=== PATIENT | male | born 1995 | race African-American/Black ===

== ENCOUNTER 2019-07-13 17:37 | Emergency (ER) | payer SELFPAY ==
[2019-07-13] MEDS ORDERED: methylPREDNISolone Sodium Succinate 125 MG/2 ML SDV IM ONE (17:43)
[2019-07-13] MEDS ORDERED: Albuterol/Ipratropium 3.0-0.5 MG/3 ML Neb Soln NEB ONE (17:44)
--- NOTE | 2019-07-13 17:44 | EDM.PDOC ---
ED HPI GENERAL MEDICAL PROBLEM - General Chief Complaint: Asthma Stated Complaint: ASTHMA Time Seen by Provider: 07/13/19 17:44 Source of Information: Reports: Patient - History of Present Illness INITIAL COMMENTS - FREE TEXT/NARRATIVE: HISTORY AND PHYSICAL: History of present illness: [Patient has run out of his albuterol inhaler, he presents with shortness of breath and wheeze no fever nausea vomiting chills sweats Review of systems: As per history of present illness and below otherwise all systems reviewed and negative. Past medical history: As per history of present illness and as reviewed below otherwise noncontributory. Surgical history: As per history of present illness and as reviewed below otherwise noncontributory. Social history: No reported history of drug or alcohol abuse. Family history: As per history of present illness and as reviewed below otherwise noncontributory. Physical exam: HEENT: Atraumatic, normocephalic, pupils reactive, negative for conjunctival pallor or scleral icterus, mucous membranes moist, throat clear, neck supple, nontender, trachea midline. Lungs: Clear to auscultation, breath sounds equal bilaterally, chest nontender. Heart: S1S2, regular, negative for clicks, rubs, or JVD. Abdomen: Soft, nondistended, nontender. Negative for masses or hepatosplenomegaly. Negative for costovertebral tenderness. Pelvis: Stable nontender. Genitourinary: Deferred. Rectal: Deferred. Extremities: Atraumatic, negative for cords or calf pain. Neurovascular unremarkable. Neuro: Awake, alert, oriented. Cranial nerves II through XII unremarkable. Cerebellum unremarkable. Motor and sensory unremarkable throughout. Exam nonfocal. Diagnostics: [Chest 1 view-pt refused x-ray ] Therapeutics: [DuoNeb Solu-Medrol Pro-air HFA #1 no refill [id number] mg #5 no refill ] Impression: [Asthma exacerbation]-resolved Definitive disposition and diagnosis as appropriate pending reevaluation and review of above. - Related Data Allergies Allergy/AdvReac Type Severity Reaction Status Date / Time No Known Allergies Allergy Verified 07/13/19 17:50 Home Meds: Home Meds . [No Known Home Meds] 07/13/19 [History] ED ROS GENERAL - Review of Systems Review Of Systems: See Below ED EXAM, GENERAL - Physical Exam Exam: See Below Course - Vital Signs Last Recorded V/S: Last Vital Signs Temp Pulse 83 07/13/19 17:37 Resp 22 H 07/13/19 17:37 BP Pulse Ox 98 07/13/19 17:37 - Orders/Labs/Meds Orders: Active Orders 24 hr Category Date Time Status RT Aerosol Therapy [RC] ASDIRECTED Care 07/13/19 17:44 Active Chest 1V Frontal [CR] Stat Exams 07/13/19 17:43 Ordered Meds: Medications Discontinued Medications Generic Name Dose Route Start Last Admin Trade Name Peyton PRN Reason Stop Dose Admin Albuterol/Ipratropium 3 ml 07/13/19 17:44 07/13/19 17:55 Duoneb 3.0-0.5 Mg/3 Ml NEB 07/13/19 17:45 3 ml ONETIME ONE Administration Methylprednisolone Sodium Succinate 125 mg 07/13/19 17:43 07/13/19 17:54 Solu-Medrol IM 07/13/19 17:44 125 mg ONETIME ONE Administration Departure - Departure Time of Disposition: 17:57 Disposition: Home, Self-Care 01 Condition: Good Clinical Impression: Asthma exacerbation - Discharge Information Forms: ED Department Discharge Additional Instructions: The following information is given to patients seen in the emergency department who are being discharged to home. This information is to outline your options for follow-up care. We provide all patients seen in our emergency department with a follow-up referral. The need for follow-up, as well as the timing and circumstances, are variable depending upon the specifics of your emergency department visit. If you don't have a primary care physician on staff, we will provide you with a referral. We always advise you to contact your personal physician following an emergency department visit to inform them of the circumstance of the visit and for follow-up with them and/or the need for any referrals to a consulting specialist. The emergency department will also refer you to a specialist when appropriate. This referral assures that you have the opportunity for follow-up care with a specialist. All of these measure are taken in an effort to provide you with optimal care, which includes your follow-up. Under all circumstances we always encourage you to contact your private physician who remains a resource for coordinating your care. When calling for follow-up care, please make the office aware that this follow-up is from your recent emergency room visit. If for any reason you are refused follow-up, please contact the [facility] emergency department at and asked to speak to the emergency department charge nurse. - My Orders Last 24 Hours: My Active Orders 07/13/19 17:43 Chest 1V Frontal [CR] Stat 07/13/19 17:44 RT Aerosol Therapy [RC] ASDIRECTED - Assessment/Plan Last 24 Hours: My Active Orders 07/13/19 17:43 Chest 1V Frontal [CR] Stat 07/13/19 17:44 RT Aerosol Therapy [RC] ASDIRECTED
== END 2019-07-13 18:00 | disposition home or self-care (01) ==
LOC: MW.ED 17:37
DX: J45.901 Unspecified asthma with (acute) exacerbation (principal)
CPT/HCPCS: 96372; 99284; J2930; J7620-GY

== ENCOUNTER 2019-07-28 18:54 | Emergency (ER) | payer SELFPAY ==
[2019-07-28] MEDS ORDERED: Albuterol/Ipratropium 3.0-0.5 MG/3 ML Neb Soln NEB ONE (19:00)
--- NOTE | 2019-07-28 19:01 | EDM.PDOC ---
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 Patient states he has been needing his rescue inhaler daily since moving to [place] 3 months ago. He states for the past 2 days he has been having cough and shortness of breath. Denies fevers, chills, nausea, vomiting, abdominal pain. Patient was given duoneb x 2 and 125mg solumedrol in intermediate 15 min prior to coming to ED. Patient is hyperventilating but 95-98% on RA Review of systems: As per history of present illness and below otherwise all systems reviewed and negative. Past medical history: As per history of present illness and as reviewed below otherwise noncontributory. Surgical history: As per history of present illness and as reviewed below otherwise noncontributory. Social history: No reported history of drug or alcohol abuse. Family history: As per history of present illness and as reviewed below otherwise noncontributory. Physical exam: General: Patient sitting comfortably in no acute distress and nontoxic appearing HEENT: Atraumatic, normocephalic, pupils reactive, negative for conjunctival pallor or scleral icterus, mucous membranes moist, throat clear, neck supple, nontender, trachea midline. No meningeal signs. Lungs: Wheezing throughout but good air flow noted, chest nontender. Heart: S1S2, regular, negative for clicks, rubs, or overt murmur. Abdomen: Soft, nondistended, nontender. Negative for masses or hepatosplenomegaly. Negative for costovertebral tenderness. No rigidity, rebound , guarding. Pelvis: Stable nontender. Genitourinary: Deferred. Rectal: Deferred. Extremities: Atraumatic, negative for cords or calf pain. Neurovascular unremarkable. Neuro: Awake, alert, oriented. Cranial nerves II through XII unremarkable. Cerebellum unremarkable. Motor and sensory unremarkable throughout. Exam nonfocal. Notes: Diagnostics: Chest x-ray Therapeutics: DuoNeb Prescriptions: Ventolin inhaler Medrol dosepak Impression: Asthma exacerbation Plan: [] Definitive disposition and diagnosis as appropriate pending reevaluation and review of above. 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 Treatments, IV/IO, Oxygen chest Pain Score (Numeric/FACES): 8 - Related Data Allergies Allergy/AdvReac Type Severity Reaction Status Date / Time Unrecalled Antibiotic Allergy Other Uncoded 07/28/19 18:59 Home Meds: Home Meds Albuterol [Ventolin HFA] 1 puff INH ASDIRECTED PRN 07/28/19 [History] Albuterol [Ventolin HFA] 1 puff INH Q4H #1 inhaler 07/28/19 [Rx] Azithromycin [Zithromax] 250 mg PO ASDIRECTED #1 dosepk 07/28/19 [Rx] methylPREDNISolone [Medrol] 4 mg PO ASDIRECTED #1 tab.ds.pk 07/28/19 [Rx] Past Medical History - Past Health History Medical/Surgical History: Denies Medical/Surgical History Respiratory History: Reports: Asthma - Past Surgical History GI Surgical History: Reports: Hernia, Inguinal Social & Family History - Family History Family Medical History: Noncontributory ED ROS GENERAL - Review of Systems Review Of Systems: ROS reveals no pertinent complaints other than HPI. ED EXAM, GENERAL - Physical Exam Exam: See Below (see dictation) Course - Vital Signs Last Recorded V/S: Last Vital Signs Temp 98.3 F 07/28/19 20:45 Pulse 78 07/28/19 20:45 Resp 16 07/28/19 20:45 BP 115/67 07/28/19 20:45 Pulse Ox 99 07/28/19 20:45 - Orders/Labs/Meds Meds: Medications Discontinued Medications Generic Name Dose Route Start Last Admin Trade Name Freq PRN Reason Stop Dose Admin Albuterol/Ipratropium 3 ml 07/28/19 19:00 07/28/19 19:08 Duoneb 3.0-0.5 Mg/3 Ml NEB 07/28/19 19:01 3 ml ONETIME ONE Administration Departure - Departure Time of Disposition: 08:59 Disposition: Home, Self-Care 01 Clinical Impression: Asthma exacerbation - Discharge Information Prescriptions: Albuterol [Ventolin HFA] 1 puff INH Q4H #1 inhaler Azithromycin [Zithromax] 250 mg PO ASDIRECTED #1 dosepk methylPREDNISolone [Medrol] 4 mg PO ASDIRECTED #1 tab.ds.pk Instructions: Shortness of Breath, Adult, [id number] Referrals: PCP,None [Primary Care Provider] - Forms: ED Department Discharge
--- NOTE | 2019-07-28 19:42 | CR ---
INDICATION: pain, SOB TECHNIQUE: Chest 1 view. COMPARISON: None. FINDINGS: Cardiovascular and mediastinum: Heart size and vasculature are normal in caliber and appearance. Mediastinum is within normal limits. Lungs and pleural space: Lungs are clear. No sign of infiltrate or mass. No sign of pleural effusion. No pneumothorax. Bones and soft tissues: No significant findings. IMPRESSION: Unremarkable chest. Dictated by: Magan Doty MD @ 07/28/2019 19:39:59 (Electronically Signed)
== END 2019-07-28 20:46 | disposition home or self-care (01) ==
LOC: MW.ED 18:54
DX: J45.901 Unspecified asthma with (acute) exacerbation (principal); Z88.1 Allergy status to other antibiotic agents; Z79.899 Other long term (current) drug therapy
CPT/HCPCS: 71045; 71045-26; 99282; 99284-25; J7620-GY

== ENCOUNTER 2019-09-15 11:11 | Emergency (ER) | payer OTHER ==
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
== END 2019-09-15 11:48 | disposition home or self-care (01) ==
LOC: MW.ED 11:11
DX: Z13.9 Encounter for screening, unspecified (principal); J45.909 Unspecified asthma, uncomplicated; Z79.899 Other long term (current) drug therapy
CPT/HCPCS: 82962; 99282; 99284

== ENCOUNTER 2019-09-27 23:45 | Emergency (ER) | payer OTHER ==
[2019-09-27] MEDS ORDERED: Albuterol/Ipratropium 3.0-0.5 MG/3 ML Neb Soln ONE (23:47)
[2019-09-27] MEDS ORDERED: Sodium Chloride 0.9% 2.5 ML Syringe FLUSH PRN (23:56)
[2019-09-27] MEDS ORDERED: Sodium Chloride 0.9% 1,000 ML IV ONE (23:56)
[2019-09-27] MEDS ORDERED: LORazepam 2 MG/ML SDV IVPUSH ONE (23:56)
[2019-09-27] MEDS ORDERED: methylPREDNISolone Sodium Succinate 125 MG/2 ML SDV IVPUSH ONE (23:56)
[2019-09-27] MEDS ORDERED: Sodium Chloride 0.9% 10 ML Syringe FLUSH PRN (23:56)
--- NOTE | 2019-09-27 23:59 | EDM.PDOC ---
ED HPI GENERAL MEDICAL PROBLEM - General Chief Complaint: Respiratory Problem Stated Complaint: ASTHMA ATTACK Time Seen by Provider: 09/27/19 23:51 - History of Present Illness INITIAL COMMENTS - FREE TEXT/NARRATIVE: HISTORY AND PHYSICAL: History of present illness: The patient is a 23-year-old male with a known history of asthma who is presented to the ED once a month for the last or months including today and arrives via EMS with complaints of an asthma attack. He says it's been going on for the last 3 or 4 days and it was worse this evening. He says he has just been feeling very sick but has not had a fever nausea vomiting or diarrhea and has had a dry hacking cough. He says he has nebulizer machine but it is unclear whether or not he is using it. The patient denies getting his flu shot this year and has been eating and drinking normally. He was brought via EMS and he was given a duo neb in route. His sats been good via EMS as well as here. He has been referred to primary care on each of his prior ED visits over the last 4 months and he says he does not have a provider yet has not connected. He says that he does smoke marijuana and no cigarettes and no other drugs but did not smoke marijuana this evening The patient told nursing that he was having some headache and earache but he did not offer that information to me as well as a sore throat. He told me that he's been feeling very congested and blowing his nose a lot. Review of systems: As per history of present illness and below otherwise all systems reviewed and negative. Past medical history: As per history of present illness and as reviewed below otherwise noncontributory. Surgical history: As per history of present illness and as reviewed below otherwise noncontributory. Social history: No reported history of drug or alcohol abuse. Family history: As per history of present illness and as reviewed below otherwise noncontributory. Physical exam: General: Well-developed well-nourished thin man who is nontoxic and appears very anxious on my evaluation. He has hyperventilating but is speaking without breathlessness. Vital signs are noted by me HEENT: Atraumatic, normocephalic, pupils reactive, negative for conjunctival pallor or scleral icterus, mucous membranes moist, throat clear, neck supple, nontender, trachea midline. TMs are dulled bilaterally and there is some cerumen in external canal. The patient does have a nasal quality to voice but doesn't have any specific sinus tenderness. Lungs: Clear to auscultation with an occasional coarse breath sound and expiratory wheeze but some diminished breath sounds in the left base and exaggerated work of breathing no stridor, breath sounds equal bilaterally, chest nontender. Heart: S1S2, regular rhythm and not tachycardic rate on my evaluation but no overt murmurs Abdomen: Soft, nondistended, nontender. Negative for masses or hepatosplenomegaly. Negative for costovertebral tenderness. Pelvis: Stable nontender. Genitourinary: Deferred. Rectal: Deferred. Extremities: Atraumatic, negative for cords or calf pain. Neurovascular unremarkable. Neuro: Awake, alert, oriented. Cranial nerves II through XII unremarkable. Cerebellum unremarkable. Motor and sensory unremarkable throughout. Exam nonfocal. Diagnostics: CBC CMP influenza swab a chest x-ray Therapeutics: IV O2 monitor IV fluids duo neb Solu-Medrol Ativan Tylenol The patient tells me he has a nebulizer machine as well as a medicine for it, a rescue inhaler and a spacer at home. I stressed the importance again of the need for getting an appointment in the clinic and having follow-up as this patient has been here once a month the last 4 months in a row for asthma issues. Impression: Acute asthma exacerbation, URI with cough, congestion Definitive disposition and diagnosis as appropriate pending reevaluation and review of above. Treatments PROCEDURES ANALYST: Reports: Other (see below) Other Treatments PROCEDURES ANALYST: Duoneb inh - Related Data Allergies Allergy/AdvReac Type Severity Reaction Status Date / Time Unrecalled Antibiotic Allergy Other Uncoded 09/27/19 23:56 Home Meds: Home Meds . [No Known Home Meds] 09/15/19 [History] Past Medical History - Past Health History Medical/Surgical History: Denies Medical/Surgical History Respiratory History: Reports: Asthma - Infectious Disease History Infectious Disease History: Reports: None - Past Surgical History GI Surgical History: Reports: Hernia, Inguinal Musculoskeletal Surgical History: Reports: Other (See Below) Other Musculoskeletal Surgeries/Procedures:: hand sx Social & Family History - Family History Family Medical History: Noncontributory ED ROS GENERAL - Review of Systems Review Of Systems: ROS reveals no pertinent complaints other than HPI. ED EXAM, GENERAL - Physical Exam Exam: See Below (See dictation) Course - Vital Signs Last Recorded V/S: Last Vital Signs Temp 36.1 C 09/27/19 23:50 Pulse 99 09/27/19 23:50 Resp 25 H 09/27/19 23:50 BP 139/88 09/27/19 23:50 Pulse Ox 100 09/27/19 23:50 - Orders/Labs/Meds Orders: Active Orders 24 hr Category Date Time Status Cardiac Monitoring [RC] . DIRECTED Care 09/27/19 23:54 Active Oxygen Therapy, ED [RC] ASDIRECTED Care 09/27/19 23:54 Active Pulse Oximetry [RC] ASDIRECTED Care 09/27/19 23:54 Active RT Aerosol Therapy [RC] ASDIRECTED Care 09/28/19 00:05 Active Sodium Chloride 0.9% [Normal Saline] 1,000 ml Med 09/27/19 23:56 Active IV STAT Sodium Chloride 0.9% [Saline Flush] Med 09/27/19 23:56 Active 10 ml FLUSH ASDIRECTED PRN Sodium Chloride 0.9% [Saline Flush] Med 09/27/19 23:56 Active 2.5 ml FLUSH ASDIRECTED PRN Saline Lock Insert [OM.PC] Stat Oth 09/27/19 23:54 Ordered Medication Orders Sodium Chloride (Normal Saline) 1,000 mls @ 999 mls/hr IV STAT ONE Stop: 09/28/19 00:56 Last Admin: 09/28/19 00:04 Dose: 999 mls/hr Sodium Chloride (Saline Flush) 10 ml FLUSH ASDIRECTED PRN PRN Reason: Keep Vein Open Sodium Chloride (Saline Flush) 2.5 ml FLUSH ASDIRECTED PRN PRN Reason: Keep Vein Open Labs: Laboratory Tests 09/27/19 09/27/19 Range/Units 23:50 23:50 WBC 9.10 (4.0-11.0) K/uL RBC 4.94 (4.50-5.90) M/uL Hgb 16.2 (13.0-17.0) g/dL Hct 46.0 (38.0-50.0) % MCV 93.1 (80.0-98.0) fL MCH 32.8 H (27.0-32.0) pg MCHC 35.2 (31.0-37.0) g/dL RDW Std Deviation 39.6 (28.0-62.0) fl RDW Coeff of Rivka 12 (11.0-15.0) % Plt Count 230 (150-400) K/uL MPV 9.50 (7.40-12.00) fL Neut % (Auto) 61.6 (48.0-80.0) % Lymph % (Auto) 28.4 (16.0-40.0) % [place] % (Auto) 8.9 (0.0-15.0) % Eos % (Auto) 0.9 (0.0-7.0) % Baso % (Auto) 0.2 (0.0-1.5) % Neut # (Auto) 5.6 (1.4-5.7) K/uL Lymph # (Auto) 2.6 H (0.6-2.4) K/uL [place] # (Auto) 0.8 (0.0-0.8) K/uL Eos # (Auto) 0.1 (0.0-0.7) K/uL Baso # (Auto) 0.0 (0.0-0.1) K/uL Nucleated RBC % 0.0 /100WBC Nucleated RBCs # 0 K/uL Sodium 137 (136-148) mmol/L Potassium 3.5 (3.5-5.1) mmol/L Chloride 101 (98-107) mmol/L Carbon Dioxide 18.4 L (21.0-32.0) mmol/L BUN 25 H (7.0-18.0) mg/dL Creatinine 1.4 H (0.8-1.3) mg/dL Est Cr Clr Drug Dosing 85.68 mL/min Estimated GFR (MDRD) > 60.0 ml/min Glucose 94 (74-106) mg/dL Calcium 9.4 (8.5-10.1) mg/dL Total Bilirubin 1.0 (0.2-1.0) mg/dL AST 54 H (15-37) IU/L ALT 37 (14-63) IU/L Alkaline Phosphatase 69 (46-116) U/L Total Protein 7.9 (6.4-8.2) g/dL Albumin 4.4 (3.4-5.0) g/dL Globulin 3.5 (2.6-4.0) g/dL Albumin/Globulin Ratio 1.3 (0.9-1.6) Meds: Medications Generic Name Dose Route Start Last Admin Trade Name Freq PRN Reason Stop Dose Admin Sodium Chloride 1,000 mls @ 999 mls/hr 09/27/19 23:56 09/28/19 00:04 Normal Saline IV 09/28/19 00:56 999 mls/hr STAT ONE Administration Sodium Chloride 10 ml 09/27/19 23:56 Saline Flush FLUSH ASDIRECTED PRN Keep Vein Open Sodium Chloride 2.5 ml 09/27/19 23:56 Saline Flush FLUSH ASDIRECTED PRN Keep Vein Open Discontinued Medications Generic Name Dose Route Start Last Admin Trade Name Freq PRN Reason Stop Dose Admin Acetaminophen 1,000 mg 09/28/19 00:07 09/28/19 00:09 Tylenol Extra Strength PO 09/28/19 00:08 1,000 mg ONETIME ONE Administration Albuterol/Ipratropium Confirm 09/27/19 23:47 09/27/19 23:50 Duoneb 3.0-0.5 Mg/3 Ml Administered 09/27/19 23:48 3 ml Dose Administration 3 ml .ROUTE .STK-MED ONE Albuterol/Ipratropium 3 ml 09/28/19 00:05 09/28/19 00:06 Duoneb 3.0-0.5 Mg/3 Ml NEB 09/28/19 00:06 Not Given ONETIME ONE Lorazepam 0.5 mg 09/27/19 23:56 09/28/19 00:04 Ativan IVPUSH 09/27/19 23:57 0.5 mg ONETIME ONE Administration Methylprednisolone Sodium Succinate 125 mg 09/27/19 23:56 09/28/19 00:04 Solu-Medrol IVPUSH 09/27/19 23:57 125 mg ONETIME ONE Administration Departure - Departure Time of Disposition: 00:35 Disposition: Home, Self-Care 01 Condition: Good Clinical Impression: Asthma exacerbation, URI with cough and congestion - Discharge Information Referrals: PCP,None [Primary Care Provider] - Forms: ED Department Discharge Additional Instructions: The following information is given to patients seen in the emergency department who are being discharged to home. This information is to outline your options for follow-up care. We provide all patients seen in our emergency department with a follow-up referral. The need for follow-up, as well as the timing and circumstances, are variable depending upon the specifics of your emergency department visit. If you don't have a primary care physician on staff, we will provide you with a referral. We always advise you to contact your personal physician following an emergency department visit to inform them of the circumstance of the visit and for follow-up with them and/or the need for any referrals to a consulting specialist. The emergency department will also refer you to a specialist when appropriate. This referral assures that you have the opportunity for followup care with a specialist. All of these measure are taken in an effort to provide you with optimal care, which includes your followup. Under all circumstances we always encourage you to contact your private physician who remains a resource for coordinating your care. When calling for followup care, please make the office aware that this follow-up is from your recent emergency room visit. If for any reason you are refused follow-up, please contact the [facility] emergency department at and ask to speak to the emergency department charge nurse. [facility] Primary care- Internal [place] [address] Push hydration and use [id number] Zyrtec or Claritin for your sinus fluid and congestion. You may also use [id number] Flonase to help reduce swelling of your nasal passages and to promote drainage. Use cool mist humidifier at sleep times. Use your nebulizer or your inhaler with spacer every 4-6 hours for spastic cough or shortness of breath/wheezing. Please take the prednisone as prescribed starting later this afternoon. These call and schedule a follow-up appointment in the clinic for reevaluation and further care and preventative therapy with your asthma. Return to ER as needed and as discussed - My Orders Last 24 Hours: My Active Orders 09/27/19 23:54 Cardiac Monitoring [RC] . DIRECTED Oxygen Therapy, ED [RC] ASDIRECTED Pulse Oximetry [RC] ASDIRECTED Saline Lock Insert [OM.PC] Stat 09/27/19 23:56 Sodium Chloride 0.9% [Normal Saline] 1,000 ml IV STAT Sodium Chloride 0.9% [Saline Flush] 10 ml FLUSH ASDIRECTED PRN Sodium Chloride 0.9% [Saline Flush] 2.5 ml FLUSH ASDIRECTED PRN 09/28/19 00:05 RT Aerosol Therapy [RC] ASDIRECTED - Assessment/Plan Last 24 Hours: My Active Orders 09/27/19 23:54 Cardiac Monitoring [RC] . DIRECTED Oxygen Therapy, ED [RC] ASDIRECTED Pulse Oximetry [RC] ASDIRECTED Saline Lock Insert [OM.PC] Stat 09/27/19 23:56 Sodium Chloride 0.9% [Normal Saline] 1,000 ml IV STAT Sodium Chloride 0.9% [Saline Flush] 10 ml FLUSH ASDIRECTED PRN Sodium Chloride 0.9% [Saline Flush] 2.5 ml FLUSH ASDIRECTED PRN 09/28/19 00:05 RT Aerosol Therapy [RC] ASDIRECTED
[2019-09-28] MEDS ORDERED: Albuterol/Ipratropium 3.0-0.5 MG/3 ML Neb Soln NEB ONE (00:05)
[2019-09-28] MEDS ORDERED: Acetaminophen 500 MG Tab PO ONE (00:07)
[2019-09-28 00:23] LABS: BLOOD UREA NITROGEN,BUN 25 mg/dL (7.0-18.0); CARBON DIOXIDE,CO2 18.4 mmol/L (21.0-32.0); CHLORIDE,CL 101 mmol/L (98-107); GLUCOSE RANDOM 94 mg/dL (74-106); POTASSIUM,K 3.5 mmol/L (3.5-5.1); SODIUM,NA 137 mmol/L (136-148)
--- NOTE | 2019-09-28 00:28 | CR ---
INDICATION: Chest pain, shortness of breath TECHNIQUE: Chest radiograph 1 view on 2 films COMPARISON: None FINDINGS: Mediastinum: The mediastinum is normal in appearance. The heart silhouette is normal in size and morphology. Lung: Both lungs are unremarkable in appearance. No sign of pleural effusion seen. No pneumothorax is identified. Bone and Soft tissue: Unremarkable for age. IMPRESSION: 1. No acute cardiopulmonary disease is seen. Dictated by: Oseas Chambers MD @ 09/28/2019 00:25:37 (Electronically Signed)
== END 2019-09-28 00:50 | disposition home or self-care (01) ==
LOC: MW.ED 23:45
DX: J45.901 Unspecified asthma with (acute) exacerbation (principal); J06.9 Acute upper respiratory infection, unspecified
CPT/HCPCS: 36415; 71045; 71045-26; 80053; 85025; 87804; 94640; 96361; 96374; 96375; 99284-25; A9270-GY; J2060; J2930; J7040; J7620-GY

== ENCOUNTER 2019-10-07 00:36 | Emergency (ER) | payer OTHER ==
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
[2019-10-07] MEDS ORDERED: Diphtheria,Pertussis(Acell),Tetanus Vaccine 0.5 ML Syringe IM ONE (00:47)
== END 2019-10-07 01:00 | disposition home or self-care (01) ==
LOC: MW.ED 00:36
DX: S00.81XA Abrasion of other part of head, initial encounter (principal); J45.909 Unspecified asthma, uncomplicated; Z23 Encounter for immunization; Z88.1 Allergy status to other antibiotic agents; Y04.0XXA Assault by unarmed brawl or fight, initial encounter
CPT/HCPCS: 90471; 90715; 99282; 99284-25

== ENCOUNTER 2019-12-21 09:17 | Emergency (ER) | payer SELFPAY ==
[2019-12-21] MEDS ORDERED: Albuterol/Ipratropium 3.0-0.5 MG/3 ML Neb Soln NEB ONE (09:18)
--- NOTE | 2019-12-21 09:19 | EDM.PDOC ---
ED HPI GENERAL MEDICAL PROBLEM - General Stated Complaint: TROUBLE BREATHING, ASTHMA Time Seen by Provider: 12/21/19 09:19 Source of Information: Reports: Patient - History of Present Illness INITIAL COMMENTS - FREE TEXT/NARRATIVE: HISTORY AND PHYSICAL: History of present illness: [Patient with nicotine dependence and asthma has run out of his albuterol inhaler presents with shortness of breath and wheeze which cleared with DuoNeb no fever nausea vomiting chills sweats ] Review of systems: As per history of present illness and below otherwise all systems reviewed and negative. Past medical history: As per history of present illness and as reviewed below otherwise noncontributory. Surgical history: As per history of present illness and as reviewed below otherwise noncontributory. Social history: No reported history of drug or alcohol abuse. Family history: As per history of present illness and as reviewed below otherwise noncontributory. Physical exam: HEENT: Atraumatic, normocephalic, pupils reactive, negative for conjunctival pallor or scleral icterus, mucous membranes moist, throat clear, neck supple, nontender, trachea midline. Lungs: Clear to auscultation, breath sounds equal bilaterally, chest nontender. Heart: S1S2, regular, negative for clicks, rubs, or JVD. Abdomen: Soft, nondistended, nontender. Negative for masses or hepatosplenomegaly. Negative for costovertebral tenderness. Pelvis: Stable nontender. Genitourinary: Deferred. Rectal: Deferred. Extremities: Atraumatic, negative for cords or calf pain. Neurovascular unremarkable. Neuro: Awake, alert, oriented. Cranial nerves II through XII unremarkable. Cerebellum unremarkable. Motor and sensory unremarkable throughout. Exam nonfocal. Diagnostics: [1 view ] Therapeutics: [hFA Prednisone ] Impression: [Exacerbation Medication noncompliance Nicotine dependence] Definitive disposition and diagnosis as appropriate pending reevaluation and review of above. Chest Pain Score (Numeric/FACES): 8 - Related Data Allergies Allergy/AdvReac Type Severity Reaction Status Date / Time Unrecalled Antibiotic Allergy Other Uncoded 12/21/19 09:24 Home Meds: Home Meds . [No Known Home Meds] 09/15/19 [History] Past Medical History - Past Health History Medical/Surgical History: Denies Medical/Surgical History Respiratory History: Reports: Asthma Gastrointestinal History: Reports: None Musculoskeletal History: Reports: None - Infectious Disease History Infectious Disease History: Reports: None - Past Surgical History GI Surgical History: Reports: Hernia, Inguinal Musculoskeletal Surgical History: Reports: Other (See Below) Other Musculoskeletal Surgeries/Procedures:: hand sx Social & Family History - Family History Family Medical History: Noncontributory - Caffeine Use Caffeine Use: Reports: None ED ROS GENERAL - Review of Systems Review Of Systems: See Below ED EXAM, GENERAL - Physical Exam Exam: See Below Course - Vital Signs Last Recorded V/S: Last Vital Signs Temp 97.3 F 12/21/19 09:24 Pulse 95 12/21/19 09:24 Resp 28 H 12/21/19 09:24 BP 108/87 12/21/19 09:24 Pulse Ox 99 12/21/19 09:24 - Orders/Labs/Meds Orders: Active Orders 24 hr Category Date Time Status RT Aerosol Therapy [RC] ASDIRECTED Care 12/21/19 09:18 Active Chest 1V Frontal [CR] Stat Exams 12/21/19 09:18 Ordered Meds: Medications Discontinued Medications Generic Name Dose Route Start Last Admin Trade Name Freq PRN Reason Stop Dose Admin Albuterol/Ipratropium 3 ml 12/21/19 09:18 12/21/19 09:31 Duoneb 3.0-0.5 Mg/3 Ml NEB 12/21/19 09:19 3 ml ONETIME ONE Administration Departure - Departure Time of Disposition: 09:44 Disposition: Home, Self-Care 01 Condition: Good Clinical Impression: Asthma exacerbation - Discharge Information Additional Instructions: The following information is given to patients seen in the emergency department who are being discharged to home. This information is to outline your options for follow-up care. We provide all patients seen in our emergency department with a follow-up referral. The need for follow-up, as well as the timing and circumstances, are variable depending upon the specifics of your emergency department visit. If you don't have a primary care physician on staff, we will provide you with a referral. We always advise you to contact your personal physician following an emergency department visit to inform them of the circumstance of the visit and for follow-up with them and/or the need for any referrals to a consulting specialist. The emergency department will also refer you to a specialist when appropriate. This referral assures that you have the opportunity for follow-up care with a specialist. All of these measure are taken in an effort to provide you with optimal care, which includes your follow-up. Under all circumstances we always encourage you to contact your private physician who remains a resource for coordinating your care. When calling for follow-up care, please make the office aware that this follow-up is from your recent emergency room visit. If for any reason you are refused follow-up, please contact the [facility] emergency department at and asked to speak to the emergency department charge nurse. Sepsis Event Note - Focused Exam Vital Signs: Vital Signs Temp Pulse Resp BP Pulse Ox 12/21/19 09:24 97.3 F 95 28 H 108/87 99 Date Exam was Performed: 12/21/19 Time Exam was Performed: 09:43 - My Orders Last 24 Hours: My Active Orders 12/21/19 09:18 RT Aerosol Therapy [RC] ASDIRECTED Chest 1V Frontal [CR] Stat - Assessment/Plan Last 24 Hours: My Active Orders 12/21/19 09:18 RT Aerosol Therapy [RC] ASDIRECTED Chest 1V Frontal [CR] Stat
--- NOTE | 2019-12-21 10:02 | CR ---
Chest: Portable view of the chest was obtained. Comparison: Prior chest x-ray of 09/28/19. Heart size and mediastinum are normal. Lungs are clear. Bony structures are unremarkable. Impression: 1. Nothing acute is appreciated on portable chest x-ray. Diagnostic code #1 This report was dictated in [place] Standard Time
== END 2019-12-21 10:15 | disposition home or self-care (01) ==
LOC: MW.ED 09:17
DX: J45.901 Unspecified asthma with (acute) exacerbation (principal); F17.200 Nicotine dependence, unspecified, uncomplicated; Z91.14 Patient's other noncompliance with medication regimen; Z88.1 Allergy status to other antibiotic agents
CPT/HCPCS: 71045; 71045-26; 99283; 99285-25; J7620-GY

== ENCOUNTER 2019-12-31 03:34 | Emergency (ER) | payer OTHER ==
[2019-12-31] MEDS ORDERED: Ziprasidone HCl 20 MG Cap PO STA (03:46)
[2019-12-31] MEDS ORDERED: Albuterol 8 GM Inhaler INH ONE (03:46)
[2019-12-31] MEDS ORDERED: Ziprasidone Mesylate 20 MG Vial IM ONE (04:04)
[2019-12-31] MEDS ORDERED: Water For Injection, Sterile 20 ML SDV INJECT ONE (04:04)
--- NOTE | 2019-12-31 04:24 | CR ---
INDICATION: Chest sensation TECHNIQUE: Chest 1 views COMPARISON: Chest x-ray 12/21/2019 FINDINGS: Cardiovascular and mediastinum: Heart size and vasculature are normal in caliber and appearance. Lungs and pleural spaces: Lungs are clear. No sign of infiltrate or mass. No sign of pleural effusion. No pneumothorax. Bones and soft tissues: No significant findings. IMPRESSION: No acute findings and no significant changes from the prior exam. Dictated by Rodrigo Barrett MD @ Dec 31 2019 4:21AM Signed by Dr. Rodrigo Barrett @ Dec 31 2019 4:22AM
[2019-12-31 04:37] LABS: BLOOD UREA NITROGEN,BUN 14 mg/dL (7.0-18.0); CARBON DIOXIDE,CO2 19.8 mmol/L (21.0-32.0); CHLORIDE,CL 100 mmol/L (98-107); GLUCOSE RANDOM 102 mg/dL (74-106); POTASSIUM,K 3.1 mmol/L (3.5-5.1); SODIUM,NA 139 mmol/L (136-148)
--- NOTE | 2019-12-31 06:42 | EDM.PDOC ---
ED [facility] GENERAL MEDICAL PROBLEM - General Chief Complaint: Respiratory Problem Stated Complaint: AMB Time Seen by Provider: 12/31/19 06:42 - History of Present Illness INITIAL COMMENTS - FREE TEXT/NARRATIVE: HPI 24-year-old male presents and law enforcement custody for evaluation of increased agitation, patient was arrested 2-3 hours ago for suspected DUI and was noted to have increasing agitation throughout his time in law enforcement custody, patient reports a history of asthma and vaguely reports some sort of chest sensation discomfort. Denies drug use. Denies alcohol use. Patient variably reported to nursing/law enforcement (but denied to myself) drug use immediately prior to custodial. Law enforcement stays patient was detained without trauma. No further information available. Review of medical record notable for poorly characterize agitation/psychosis that was treated with Haldol and Ativan at the time of another law enforcement medical screening. M/S/F/SocHx notable for: please see HPI; remainder reviewed with patient and in chart. ROS: Negative constitutional, eye, cardiovascular, pulmonary, GI, , MSK, skin , neurologic, psychiatric, endocrine unless noted in the HPI. Exam HR 132, RR 22, BP 98/75, T 36.3C, SaO2 96% on room air. Gen: Pleasant, non-toxic appearing, resting comfortably. HEENT: NC, AT, PEERL, EOMI. Resp: faint scattered expiratory wheezing, otherwise clear to auscultation bilaterally, normal work of breathing, no accessory muscle usage. Card: Regular rate and rhythm with no murmurs, rubs, or gallops, extremities warm and well perfused. GI: Non-tender to palpation throughout all quadrants, no focal tenderness at McBurney's point, negative Muñoz's sign, non-distended, no rebound or guarding. : No suprapubic tenderness to palpation. MSK: No visible deformities, strength and tone without visually appreciable deficit. Skin: Normal color with no visible lesions. Neuro: alert and oriented 3, no facial asymmetry, vision and hearing WNL. Psych: markedly unusual mood and affect, appears anxious. Labs / Imaging: EKG: SR at 113 BPM, QRS 80 msec, QTc 431 msec, no ST-segment elevations or depressions, T-wave inversions or new LBBB. CXR: no acute cardiopulmonary disease process. WBC 4.94, HB 15.3, sodium 139, potassium 3.1, troponin <0.050, TSH 3.22, EtOH 96. UDS negative. MDM Previous chart, nursing note, labs, imaging, and vitals reviewed. A: 24-year-old male presents and law enforcement custody for evaluation of increased agitation, patient was arrested 2-3 hours ago for suspected DUI and was noted to have increasing agitation throughout his time in law enforcement custody, patient reports a history of asthma and vaguely reports some sort of chest sensation discomfort. Evaluation: patient with anxiety and psychomotor agitation on arrival, this was treated as below. Mild respiratory wheeze treated with albuterol. Electrolytes WNL, CBC WNL, troponin nondetectable, TSH within normal limits, EtOH moderately elevated, and while the patients UDS is negative, this is of low sensitivity in the setting of stated drug use as well as observed psychomotor agitation. ECG without evidence of ischemia or conduction abnormalities. Strongly doubt acute cardiopulmonary process, history and exam without evidence of active infectious process (additionally, no evidence of encephalitis or meningitis). ED Course: Albuterol ordered for treatment of mild expiratory wheeze. Geodon ordered for psychomotor agitation. Patient with inadequate sedation from Geodon and resolution of anxiety. Patient care transferred to the [facility] physician, Dr. Ward. Anticipated discharge following the resolution of Geodon anxiolysis and metabolization of suspected drug ingestion. However, patient will require repeat evaluation given the clinical uncertainty at the time of patient care transfer. Impression: AMS, agitation, EtOH intoxication. - Related Data Allergies Allergy/AdvReac Type Severity Reaction Status Date / Time Unrecalled Antibiotic Allergy Other Uncoded 12/31/19 03:42 Home Meds: Home Meds . [No Known Home Meds] 09/15/19 [History] Past Medical History - Past Health History Medical/Surgical History: Denies Medical/Surgical History Respiratory History: Reports: Asthma Gastrointestinal History: Reports: None Musculoskeletal History: Reports: None Psychiatric History: Reports: Anxiety, Depression - Infectious Disease History Infectious Disease History: Reports: None - Past Surgical History Respiratory Surgical History: Reports: None GI Surgical History: Reports: Hernia, Inguinal Musculoskeletal Surgical History: Reports: Other (See Below) Other Musculoskeletal Surgeries/Procedures:: hand sx Social & Family History - Family History Family Medical History: Noncontributory - Tobacco Use Smoking Status *Q: Never Smoker Second Hand Smoke Exposure: No - Caffeine Use Caffeine Use: Reports: None - Recreational Drug Use Recreational Drug Use: Yes Recreational Drug Type: Reports: Other (see below) Other Recreational Drug Type: unknown "round" drug ED ROS GENERAL - Review of Systems Review Of Systems: See Below ED EXAM, GENERAL - Physical Exam Exam: See Below Course - Vital Signs Last Recorded V/S: Last Vital Signs Temp 36.3 C 12/31/19 03:38 Pulse 101 H 12/31/19 05:25 Resp 14 12/31/19 05:25 BP 116/78 12/31/19 05:25 Pulse Ox 96 12/31/19 05:25 - Orders/Labs/Meds Orders: Active Orders 24 hr Category Date Time Status EKG 12 Lead [EKG Documentation Completion] [RC] STAT Care 12/31/19 04:16 Active RT Post Treatment Assessment [RC] Click to Edit Care 12/31/19 03:47 Active RT Pre-Treatment Assessment [RC] Click to Edit Care 12/31/19 03:47 Active Labs: Laboratory Tests 12/31/19 12/31/19 12/31/19 Range/Units 04:00 04:00 05:30 WBC 4.94 (4.0-11.0) K/uL RBC 4.59 (4.50-5.90) M/uL Hgb 15.3 (13.0-17.0) g/dL Hct 42.5 (38.0-50.0) % MCV 92.6 (80.0-98.0) fL MCH 33.3 H (27.0-32.0) pg MCHC 36.0 (31.0-37.0) g/dL RDW Std Deviation 40.7 (28.0-62.0) fl RDW Coeff of Rivka 12 (11.0-15.0) % Plt Count 279 (150-400) K/uL MPV 9.10 (7.40-12.00) fL Neut % (Auto) 47.8 L (48.0-80.0) % Lymph % (Auto) 45.5 H (16.0-40.0) % Henderson % (Auto) 5.9 (0.0-15.0) % Eos % (Auto) 0.6 (0.0-7.0) % Baso % (Auto) 0.2 (0.0-1.5) % Neut # (Auto) 2.4 (1.4-5.7) K/uL Lymph # (Auto) 2.3 (0.6-2.4) K/uL Henderson # (Auto) 0.3 (0.0-0.8) K/uL Eos # (Auto) 0.0 (0.0-0.7) K/uL Baso # (Auto) 0.0 (0.0-0.1) K/uL Nucleated RBC % 0.0 /100WBC Nucleated RBCs # 0 K/uL Sodium 139 (136-148) mmol/L Potassium 3.1 L (3.5-5.1) mmol/L Chloride 100 (98-107) mmol/L Carbon Dioxide 19.8 L (21.0-32.0) mmol/L BUN 14 (7.0-18.0) mg/dL Creatinine 1.2 (0.8-1.3) mg/dL Est Cr Clr Drug Dosing 111.51 mL/min Estimated GFR (MDRD) > 60.0 ml/min Glucose 102 (74-106) mg/dL Calcium 9.7 (8.5-10.1) mg/dL Troponin I < 0.050 (0.000-0.056) ng/mL TSH 3rd Generation 3.22 (0.36-3.74) uIU/mL Urine Opiates Screen NEGATIVE (NEGATIVE) Ur Oxycodone Screen NEGATIVE (NEGATIVE) Urine Methadone Screen NEGATIVE (NEGATIVE) Ur Barbiturates Screen NEGATIVE (NEGATIVE) Ur Phencyclidine Scrn NEGATIVE (NEGATIVE) Ur Amphetamine Screen NEGATIVE (NEGATIVE) U Methamphetamines Scrn NEGATIVE (NEGATIVE) U Benzodiazepines Scrn NEGATIVE (NEGATIVE) U Cocaine Metab Screen NEGATIVE (NEGATIVE) U Marijuana (THC) Screen NEGATIVE (NEGATIVE) Ethyl Alcohol 96 mg/dL Meds: Medications Discontinued Medications Generic Name Dose Route Start Last Admin Trade Name Freq PRN Reason Stop Dose Admin Albuterol 1 gm 12/31/19 03:46 12/31/19 04:13 Ventolin Hfa INH 12/31/19 03:47 2 puff ONETIME ONE Administration Sterile Water 1.2 ml 12/31/19 04:04 12/31/19 04:13 Sterile Water For Injection INJECT 12/31/19 04:05 1.2 ml ONETIME ONE Administration Ziprasidone 10 mg 12/31/19 03:46 12/31/19 05:33 Geodon PO 12/31/19 03:47 Not Given NOW STA Ziprasidone 10 mg 12/31/19 04:04 12/31/19 04:13 Geodon IM 12/31/19 04:05 10 mg ONETIME ONE Administration Departure - Departure Time of Disposition: 06:41 Disposition: DC/Tfer to [id number] Clinical Impression: AMS (altered mental status), Agitation, Alcohol intoxication - Discharge Information Referrals: PCP,None [Primary Care Provider] - Sepsis Event Note - Evaluation Sepsis Screening Result: No Definite Risk - Focused Exam Vital Signs: Vital Signs Temp Pulse Resp BP Pulse Ox 12/31/19 05:25 101 H 14 116/78 96 12/31/19 05:00 98 14 88 L 12/31/19 04:30 113 H 18 126/75 97 12/31/19 03:38 36.3 C 132 H 22 H 98/75 96 Date Exam was Performed: 12/31/19 Time Exam was Performed: 06:41 - My Orders Last 24 Hours: My Active Orders 12/31/19 03:47 RT Post Treatment Assessment [RC] Click to Edit RT Pre-Treatment Assessment [RC] Click to Edit 12/31/19 04:16 EKG 12 Lead [EKG Documentation Completion] [RC] STAT - Assessment/Plan Last 24 Hours: My Active Orders 12/31/19 03:47 RT Post Treatment Assessment [RC] Click to Edit RT Pre-Treatment Assessment [RC] Click to Edit 12/31/19 04:16 EKG 12 Lead [EKG Documentation Completion] [RC] STAT
--- NOTE | 2019-12-31 07:56 | CT ---
Head CT Technique: Multiple axial sections through the brain were obtained. Intravenous contrast was not utilized. Comparison: No prior intracranial imaging is available. Findings: Ventricles along with basal cisterns and sulci over the convexities are within normal limits for the patient's age. No abnormal parenchymal densities are seen. No evidence of intracranial hemorrhage. No midline shift or mass-effect is seen. No acute calvarial abnormality is appreciated. Visualized paranasal sinuses show nothing acute. Mastoid sinuses also show nothing acute. No acute calvarial abnormality is identified. Impression: 1. Nothing acute is identified on noncontrast head CT study. Diagnostic code #1 This report was dictated in [place] Standard Time
== END 2019-12-31 11:13 ==
LOC: MW.ED 03:34
DX: R41.82 Altered mental status, unspecified (principal); F10.129 Alcohol abuse with intoxication, unspecified; Y90.4 Blood alcohol level of 80-99 mg/100 ml; Z88.1 Allergy status to other antibiotic agents
CPT/HCPCS: 36415; 70450; 71045; 80048; 80305; 80307; 84443; 84484; 85025; 93005; 96372; 99285; J3486; 99283

== ENCOUNTER 2020-01-13 03:23 | Emergency (ER) | payer SELFPAY ==
--- NOTE | 2020-01-13 03:41 | EDM.PDOC ---
ED [facility] GENERAL MEDICAL PROBLEM - General Chief Complaint: ENT Problem Stated Complaint: SORE THROAT Time Seen by Provider: 01/13/20 03:40 Source of Information: Reports: Patient - History of Present Illness INITIAL COMMENTS - FREE TEXT/NARRATIVE: The patient is a 24-year-old male who presents to the ER complaining of a sore throat. He states that 2 days ago he started having a lot of nasal congestion, dry cough, and subjective fevers. He has laryngitis and his throat hurts especially when coughing. He has intermittent shortness of breath consistent with his asthma but this is relieved with his inhalers and he is not short of breath currently. He has tried to take some [id number] Tylenol for his symptoms but it does not help much. He denies any other symptoms beyond malaise. throat Pain Score (Numeric/FACES): 10 - Related Data Allergies Allergy/AdvReac Type Severity Reaction Status Date / Time Unrecalled Antibiotic Allergy Other Uncoded 01/13/20 03:39 Home Meds: Home Meds Albuterol Sulfate [Proair Hfa] 2 puff INH ASDIRECTED PRN 01/13/20 [History] Past Medical History - Past Health History Medical/Surgical History: Denies Medical/Surgical History Respiratory History: Reports: Asthma Gastrointestinal History: Reports: None Musculoskeletal History: Reports: None Psychiatric History: Reports: Anxiety, Depression - Infectious Disease History Infectious Disease History: Reports: None - Past Surgical History Respiratory Surgical History: Reports: None GI Surgical History: Reports: Hernia, Inguinal Musculoskeletal Surgical History: Reports: Other (See Below) Other Musculoskeletal Surgeries/Procedures:: hand sx Social & Family History - Family History Family Medical History: Noncontributory - Caffeine Use Caffeine Use: Reports: None ED ROS ENT - Review of Systems Review Of Systems: See Below (Positive for cough, positive for subjective fevers , positive for malaise, positive nasal congestion, positive for cough, positive for sore throat, all other Positives and pertinent negatives as per HPI. All other pertinent systems were reviewed and are negative) ED EXAM, ENT - Physical Exam Exam: See Below Text/Narrative:: Constitutional: No acute distress, Non-toxic appearance, laryngitis present and looks like he does not feel well HEENT.: Normocephalic, Atraumatic, PERRL, EOMI, External ears are atraumatic, Oropharynx clear and moist without lesions or masses, there are diffuse telangiectasias, nares are patent without epistaxis Neck: Normal range of motion, Trachea Midline, No stridor Respiratory.: No respiratory distress, No tachypnea, Lungs Clear to Auscultation bilaterally without wheezes, rales, or rhonchi, occasional cough present Cardiovascular.: Regular rate and Rhythm without murmurs, rubs, or gallops, good peripheral perfusion GI: Deferred Genital Urinary: Deferred Musculoskeletal: Good range of motion. All 4 extremities present and atraumatic , no edema Back: Full Range of Motion Skin: Warm, Dry, Color is ethnicity appropriate, No acute rash. Lymphatic: No lymphadenopathy noted Neurological: Alert, Awake and oriented x 3, No focal deficits noted appreciate , GCS 15 Psych: Affect, Judgement, mood normal Course - Vital Signs Text/Narrative:: History and exam are consistent with a viral syndrome. Education was provided and the patient will be given 2 days off of work. Last Recorded V/S: Last Vital Signs Temp 36.6 C 01/13/20 03:33 Pulse 99 01/13/20 03:33 Resp 18 01/13/20 03:33 BP 113/61 01/13/20 03:33 Pulse Ox 99 01/13/20 03:33 Departure - Departure Time of Disposition: 03:40 Disposition: Home, Self-Care 01 Condition: Good Clinical Impression: Viral syndrome - Discharge Information Referrals: PCP,None [Primary Care Provider] - Forms: ED Department Discharge Additional Instructions: VIRAL SYNDROME This appears to be a viral syndrome. They are highly common and variable, causing fevers, colds, coughs, headaches, vomiting, diarrhea, etc. Antibiotics don't work on viruses, and they need to run their course. On average these last 7-10 days, depending upon the virus. There are some that even last up to several weeks. Rest, drink plenty of clear fluids, especially water. You want our urine to be clear to a light yellow. Ibuprofen 800 mg and Tylenol 1000 mg may be taken at the same time every 6 hours as needed for fevers and discomfort. Upper respiratory congestion and sore throats can be improved with cool liquids , humidifiers, cough drops with menthol, honey, tea with honey, and over-the- counter decongestants. Return to the ER if you develop difficulty breathing, or any other concerns. Sepsis Event Note - Evaluation Sepsis Screening Result: No Definite Risk - Focused Exam Vital Signs: Vital Signs Temp Pulse Resp BP Pulse Ox 01/13/20 03:33 36.6 C 99 18 113/61 99 Date Exam was Performed: 01/13/20 Time Exam was Performed: 03:41
== END 2020-01-13 03:43 | disposition home or self-care (01) ==
LOC: MW.ED 03:23
DX: B34.9 Viral infection, unspecified (principal); Z88.1 Allergy status to other antibiotic agents
CPT/HCPCS: 99282; 99283